=== PATIENT | female | born 1990 | race American Indian/Alaskan Native ===

== ENCOUNTER 2016-10-26 10:57 | Emergency (ER) | payer SELFPAY | END 2016-10-26 12:00 | disposition left against medical advice (07) | LOC: ED 10:57 | DX: L98.9 Disorder of the skin and subcutaneous tissue, unspecified (principal); Z53.21 Procedure and treatment not carried out due to patient leaving prior to being seen by health care provider ==

== ENCOUNTER 2016-11-27 20:02 | Emergency (ER) | payer MEDICAID ==
[2016-11-27 20:40] LABS: Basophils % (Auto) 0.3 % (0.0-1.8); Eosinophils % (Auto) 0.5 % (0.0-4.3); Hematocrit 32.4 % (30.3-42.9); Hemoglobin 10.1 gm/dl (10.1-14.3); Mean Corpuscular HGB Conc 31 % (30-34); Mean Corpuscular Hemoglobin 22 pg (28-32); Mean Corpuscular Volume 70 fl (79-97); Platelet Count 256 K/mm3 (140-440); Red Blood Count 4.62 M/mm3 (3.65-5.03); Red Cell Distribution Width 15.8 % (13.2-15.2); White Blood Count 7.9 K/mm3 (4.5-11.0)
[2016-11-27 21:05] LABS: Anion Gap 19 mmol/L; Blood Urea Nitrogen 9 mg/dL (7-17); Calcium 9.5 mg/dL (8.4-10.2); Carbon Dioxide 22 mmol/L (22-30); Chloride 100.5 mmol/L (98-107); Glucose 103 mg/dL (65-100); Potassium 3.5 mmol/L (3.6-5.0); Sodium 138 mmol/L (137-145)
[2016-11-27 21:38] LABS: Bilirubin,Urine NEG (Negative); Blood,Urine NEG (Negative); Ketones,Urine NEG (Negative); Leukocyte Esterase,Urine LG (Negative); Mucus,Urine 2+ /HPF; Nitrite,Urine NEG (Negative); Urobilinogen,Urine < 2.0 mg/dL (<2.0)
[2016-11-28] MEDS ORDERED: XYLOCAINE 1% MPF 5 mL INFILTRATI ONE (02:03)
[2016-11-28] MEDS ORDERED: ZITHROMAX PO ONE (02:03)
[2016-11-28] MEDS ORDERED: ROCEPHIN IM ONE (02:03)
--- NOTE | 2016-11-28 02:11 | Emergency Department Report ---
ED Female HPI - General Chief complaint: Urogenital-Female Stated complaint: VAG IRRITATION Time Seen by Provider: 11/28/16 01:19 Source: patient Mode of arrival: Ambulatory Limitations: No Limitations - History of Present Illness Initial comments: 26-year-old female past medical history anemia, obesity presents with complaint of vaginal irritation. Patient is currently . Denies any fevers or chills denies any vaginal bleeding states she is having whitish to yellowish vaginal discharge. Patient is awake alert and oriented 3 nontoxic-appearing. States she is sexually active without protection with one partner. I asked the patient to specify whether or not she has any abdominal pain or vaginal bleeding she adamantly denies both. States she is following up with [facility]. Last menstrual period 08/28/16. Patient is over 10 weeks MD Complaint: vaginal discharge, dysuria Onset/Timin -: days(s) Location: labia Radiation: non-radiating Are you Now?: Yes - Related Data Sexually active: Yes Previous Rx's Medication Instructions Recorded Last Taken Type Acetaminophen/Codeine [Tylenol 1 tab PO Q6H PRN #20 tab 08/30/15 Unknown Rx /Codeine # 3 tab] Ibuprofen [Motrin 600 MG tab] 600 mg PO Q8H PRN #40 tablet 08/30/15 Unknown Rx Sulfamethoxazole/Trimethoprim 1 each PO BID #20 tablet 08/30/15 Unknown Rx [Bactrim DS TAB] Nitrofurantoin Green/M-Cryst 100 mg PO Q12HR #14 capsule 11/28/16 Unknown Rx [Macrobid CAP] metroNIDAZOLE [Flagyl TAB] 500 mg PO Q12HR #14 tab 11/28/16 Unknown Rx Allergies Allergy/AdvReac Type Severity Reaction Status Date / Time No Known Allergies Allergy Verified 11/27/16 20:12 ED Review of Systems ROS: Stated complaint: VAG IRRITATION Other details as noted in HPI Constitutional: denies: chills, fever Eyes: denies: eye pain, eye discharge, vision change ENT: denies: ear pain, throat pain Respiratory: denies: cough, shortness of breath, wheezing Cardiovascular: denies: chest pain, palpitations Endocrine: no symptoms reported Gastrointestinal: denies: abdominal pain, nausea, diarrhea Genitourinary: discharge (whitish yellowish vaginal discharge). denies: urgency , dysuria Musculoskeletal: denies: back pain, joint swelling, arthralgia Skin: denies: rash, lesions Neurological: denies: headache, weakness, paresthesias Psychiatric: denies: anxiety, depression Hematological/Lymphatic: denies: easy bleeding, easy bruising ED Past Medical Hx - Past Medical History Previous Medical History?: No - Surgical History Hx Cholecystectomy: Yes Additional Surgical History: c section - Social History Smoking Status: Never Smoker Substance Use Type: None - Medications Home Medications: Home Medications Medication Instructions Recorded Confirmed Last Taken Type Acetaminophen/Codeine [Tylenol 1 tab PO Q6H PRN #20 tab 08/30/15 Unknown Rx /Codeine # 3 tab] Ibuprofen [Motrin 600 MG tab] 600 mg PO Q8H PRN #40 tablet 08/30/15 Unknown Rx Sulfamethoxazole/Trimethoprim 1 each PO BID #20 tablet 08/30/15 Unknown Rx [Bactrim DS TAB] Nitrofurantoin Green/M-Cryst 100 mg PO Q12HR #14 capsule 11/28/16 Unknown Rx [Macrobid CAP] metroNIDAZOLE [Flagyl TAB] 500 mg PO Q12HR #14 tab 11/28/16 Unknown Rx ED Physical Exam - General Limitations: No Limitations General appearance: alert, in no apparent distress - Head Head exam: Present: atraumatic, normocephalic - Eye Eye exam: Present: normal appearance, PERRL, EOMI - ENT ENT exam: Present: mucous membranes moist - Neck Neck exam: Present: normal inspection - Respiratory Respiratory exam: Present: normal lung sounds bilaterally. Absent: respiratory distress - Cardiovascular Cardiovascular Exam: Present: regular rate, normal rhythm. Absent: systolic murmur, diastolic murmur, rubs, gallop - GI/Abdominal GI/Abdominal exam: Present: soft, normal bowel sounds - External exam: Present: normal external exam Speculum exam: Present: vaginal discharge (whitish yellowish vaginal discharge) , cervical discharge (thick white vaginal discharge smell) Bi-manual exam: Present: normal bi-manual exam (no cervical motion tenderness on exam, no adnexal tenderness and no vaginal bleeding no blood in vaginal vault ) - Extremities Exam Extremities exam: Present: normal inspection - Back Exam Back exam: Present: normal inspection - Neurological Exam Neurological exam: Present: alert, oriented X3, CN II-XII intact, normal gait - Psychiatric Psychiatric exam: Present: normal affect, normal mood - Skin Skin exam: Present: warm, dry, intact, normal color. Absent: rash ED Course Vital Signs 11/27/16 11/28/16 20:12 02:35 Temperature 99.6 F 98.2 F Pulse Rate 96 H 92 H Respiratory 20 Rate Blood Pressure 141/81 Blood Pressure 126/62 [Right] O2 Sat by Pulse 98 99 Oximetry ED Medical Decision Making - Lab Data Result diagrams: 11/27/16 20:24 11/27/16 20:24 - Medical Decision Making A/P: Asymptomatic bacteriuria, vaginal discharge 1-on clinical exam patient has fishy vaginal odor will treat empirically with metronidazole. Has yellowish discharge also treat empirically for cervicitis with azithromycin and ceftriaxone. GC culture sent 2-follow up with [facility] 3-course of Macrobid, urine culture sent Critical care attestation.: If time is entered above; I have spent that time in minutes in the direct care of this critically ill patient, excluding procedure time. ED Disposition Clinical Impression: Vaginal discharge Urinary tract infection Qualifiers: Urinary tract infection type: acute cystitis Hematuria presence: without hematuria Qualified Code(s): N30.00 - Acute cystitis without hematuria Disposition: DC-01 TO HOME OR SELFCARE Is pt being admited?: No Does the pt Need Aspirin: No Condition: Stable Instructions: Nitrofurantoin Combination (By mouth), Bacterial Vaginosis (ED) Prescriptions: metroNIDAZOLE [Flagyl TAB] 500 mg PO Q12HR #14 tab Nitrofurantoin Green/M-Cryst [Macrobid CAP] 100 mg PO Q12HR #14 capsule Referrals: [facility] [Provider Group] - 3-5 Days Forms: Work/School Release Form(ED) Time of Disposition: 02:16
[2016-11-28 02:51] VITALS: BP 126/62
== END 2016-11-28 02:35 | disposition home or self-care (01) ==
LOC: ED 20:02
DX: O23.11 Infections of bladder in pregnancy, first trimester (principal); N30.00 Acute cystitis without hematuria; N89.8 Other specified noninflammatory disorders of vagina; Z3A.10 10 weeks gestation of pregnancy
CPT/HCPCS: 36415; 80048; 81001; 84703; 85025; 87086; 87210; 87591; 96372; 99284; J0696

== ENCOUNTER 2017-05-23 04:48 | Outpatient (CLI) | payer BC, MEDICAID ==
[2017-05-23] MEDS ORDERED: LACTATED RINGERS 1,000 ML ONE (05:39)
[2017-05-23] MEDS ORDERED: LACTATED RINGERS 1,000 ML IV ONE (05:50)
[2017-05-23 06:52] LABS: Amphetamine Screen,Urine PRESUMPTIVE NEGATIVE; Benzodiazepines Screen,Urine PRESUMPTIVE NEGATIVE; Cannabinoid Screen,Urine PRESUMPTIVE NEGATIVE; Cocaine Screen,Urine PRESUMPTIVE NEGATIVE; Methadone Screen,Urine PRESUMPTIVE NEGATIVE; Opiate Screen,Urine PRESUMPTIVE NEGATIVE
[2017-05-23 07:07] LABS: Bacteria,Urine 2+ /HPF (Negative); Bilirubin,Urine NEG (Negative); Blood,Urine LG (Negative); Color,Urine Yellow (Yellow); Mucus,Urine 1+ /HPF; Nitrite,Urine NEG (Negative)
[2017-05-23 07:08] LABS: RBC,Urine > 182.0 /HPF (0.0-6.0); WBC,Urine > 182.0 /HPF (0.0-6.0)
== END 2017-05-23 06:43 | disposition home or self-care (01) ==
LOC: TRG 04:48
PROVIDERS: ATTEND Obstetrics & Gynecology
DX: O47.1 False labor at or after 37 completed weeks of gestation (principal); Z3A.38 38 weeks gestation of pregnancy
CPT/HCPCS: 59025; 80307; 81001; 96360; J7120

== ENCOUNTER 2018-06-29 15:48 | Emergency (ER) | payer BC, MEDICAID ==
--- NOTE | 2018-06-29 15:55 | Emergency Department Report ---
Blank Doc - Documentation Documentation: This is a 27-year-old female that presents with sore throat x2 days. This initial assessment/diagnostic orders/clinical plan/treatment(s) is/are subject to change based on patient's health status, clinical progression and re- assessment by fellow clinical providers in the ED. Further treatment and workup at subsequent clinical providers discretion. Patient/guardians urged not to elope from the ED as their condition may be serious if not clinically assessed and managed. Initial orders include: 1- Patient sent to [facility] for further evaluation and treatment 2- strep swab
[2018-06-29 15:57] VITALS: BP 127/77
[2018-06-29] MEDS ORDERED: BICILLIN L-A IM ONE (16:28)
--- NOTE | 2018-06-29 16:28 | Emergency Department Report ---
ED ENT HPI - General Chief complaint: Sore Throat Stated complaint: SORE THROAT/FEVER/SWOLLEN GLANDS Time Seen by Provider: 06/29/18 15:54 Source: patient Mode of arrival: Ambulatory Limitations: No Limitations - History of Present Illness MD complaint: sore throat -: days(s) (2) Severity: moderate Consistency: constant - Related Data Home Medications Medication Instructions Recorded Confirmed Last Taken valACYclovir [Valtrex] 500 mg PO BID 05/26/17 05/26/17 05/25/17 21:00 1 Previous Rx's Medication Instructions Recorded Last Taken Type Docusate Sodium [Colace] 100 mg PO BID PRN #30 capsule 05/26/17 Unknown Rx Ferrous Sulfate [Feosol 325 MG tab] 325 mg PO QDAY #30 tablet 05/26/17 Unknown Rx Ibuprofen 800 mg PO Q6HR #30 tablet 05/26/17 Unknown Rx Lidocain2.5%/Prilocai2.5% [Emla] 2 gm TP ONCE #1 tube 05/26/17 Unknown Rx oxyCODONE /ACETAMINOPHEN [Percocet 1 tab PO Q4HR #30 tab 05/26/17 Unknown Rx 5/325] Allergies Allergy/AdvReac Type Severity Reaction Status Date / Time No Known Allergies Allergy Verified 06/29/18 15:48 ED Dental HPI - General Chief complaint: Sore Throat Stated complaint: SORE THROAT/FEVER/SWOLLEN GLANDS Time Seen by Provider: 06/29/18 15:54 Source: patient Mode of arrival: Ambulatory Limitations: No Limitations - Related Data Home Medications Medication Instructions Recorded Confirmed Last Taken valACYclovir [Valtrex] 500 mg PO BID 05/26/17 05/26/17 05/25/17 21:00 1 Previous Rx's Medication Instructions Recorded Last Taken Type Docusate Sodium [Colace] 100 mg PO BID PRN #30 capsule 05/26/17 Unknown Rx Ferrous Sulfate [Feosol 325 MG tab] 325 mg PO QDAY #30 tablet 05/26/17 Unknown Rx Ibuprofen 800 mg PO Q6HR #30 tablet 05/26/17 Unknown Rx Lidocain2.5%/Prilocai2.5% [Emla] 2 gm TP ONCE #1 tube 05/26/17 Unknown Rx oxyCODONE /ACETAMINOPHEN [Percocet 1 tab PO Q4HR #30 tab 05/26/17 Unknown Rx 5/325] Allergies Allergy/AdvReac Type Severity Reaction Status Date / Time No Known Allergies Allergy Verified 06/29/18 15:48 ED Review of Systems ROS: Stated complaint: SORE THROAT/FEVER/SWOLLEN GLANDS Other details as noted in HPI Comment: All other systems reviewed and negative Constitutional: chills, fever ENT: throat pain Respiratory: denies: cough, orthopnea, shortness of breath, SOB with exertion Cardiovascular: denies: chest pain, palpitations Gastrointestinal: denies: abdominal pain, nausea, vomiting, diarrhea ED Past Medical Hx - Past Medical History Previous Medical History?: No Hx Hypertension: No Hx Congestive Heart Failure: No Hx Diabetes: No Hx Deep Vein Thrombosis: No Hx Liver Disease: No Hx Renal Disease: No Hx Sickle Cell Disease: No Hx Seizures: No Hx Asthma: No Hx COPD: No Hx HIV: No - Surgical History Hx Cholecystectomy: Yes Additional Surgical History: c section - Social History Smoking Status: Current Every Day Smoker Substance Use Type: None - Medications Home Medications: Home Medications Medication Instructions Recorded Confirmed Last Taken Type Docusate Sodium [Colace] 100 mg PO BID PRN #30 capsule 05/26/17 Unknown Rx Ferrous Sulfate [Feosol 325 MG tab] 325 mg PO QDAY #30 tablet 05/26/17 Unknown Rx Ibuprofen 800 mg PO Q6HR #30 tablet 05/26/17 Unknown Rx Lidocain2.5%/Prilocai2.5% [Emla] 2 gm TP ONCE #1 tube 05/26/17 Unknown Rx oxyCODONE /ACETAMINOPHEN [Percocet 1 tab PO Q4HR #30 tab 05/26/17 Unknown Rx 5/325] valACYclovir [Valtrex] 500 mg PO BID 05/26/17 05/26/17 05/25/17 21:00 History 1 ED Physical Exam - General Limitations: No Limitations General appearance: alert, in no apparent distress - Head Head exam: Present: atraumatic, normocephalic, normal inspection - Eye Eye exam: Present: normal appearance, PERRL - ENT ENT exam: Present: other (pharyngeal erythema, tonsillar exudate, no airway compromise.) - Respiratory Respiratory exam: Present: normal lung sounds bilaterally - Cardiovascular Cardiovascular Exam: Present: regular rate, normal rhythm, normal heart sounds - GI/Abdominal GI/Abdominal exam: Present: soft. Absent: distended, tenderness, guarding, rebound, rigid - Extremities Exam Extremities exam: Present: normal inspection - Back Exam Back exam: Present: normal inspection, full ROM. Absent: tenderness, CVA tenderness (R), CVA tenderness (L), muscle spasm, paraspinal tenderness - Neurological Exam Neurological exam: Present: alert, oriented X3, CN II-XII intact, normal gait - Skin Skin exam: Present: warm, intact, normal color ED Course Vital Signs 06/29/18 15:54 Temperature 99.7 F H Pulse Rate 112 H Respiratory 20 Rate Blood Pressure 127/77 O2 Sat by Pulse 98 Oximetry ED Medical Decision Making - Medical Decision Making Patient is strep test is positive. Patient received Bicillin LA 1.2 million units IM. I advised patient to follow up with her primary care physician in the next 2-3 days and to return to the ER if patient develops any difficulty swallowing or difficulty breathing. Critical care attestation.: If time is entered above; I have spent that time in minutes in the direct care of this critically ill patient, excluding procedure time. ED Disposition Clinical Impression: Strep pharyngitis Disposition: TO HOME OR SELFCARE Is pt being admited?: No Condition: Stable Instructions: Strep Throat (ED) Referrals: [facility] [Provider Group] - 3-5 Days
== END 2018-06-29 17:05 | disposition home or self-care (01) ==
LOC: ED 15:48
DX: J02.0 Streptococcal pharyngitis (principal); F17.200 Nicotine dependence, unspecified, uncomplicated; Z90.49 Acquired absence of other specified parts of digestive tract
CPT/HCPCS: 87430; 96372; 99283; J0561